=== PATIENT | male | born 1955 | race Caucasian/White ===

== ENCOUNTER 2023-08-07 10:14 | Outpatient (AMB) | payer MEDICARE, SELFPAY ==
--- NOTE | 2023-08-07 10:21 | MHC.OFFVIS ---
Intake Vital Signs 08/07/23 10:36 Height 5 ft 8 in Weight 145 lb BMI 22.0 Handedness Left Intake Visit Reasons: New Pt - left shoulder pain Intake Note: Joel is a 68 year old left hand dominant male who presents today as a new patient for a evaluation for his left shoulder pain and weakness. Patient states that he 1st injured his left shoulder several years ago. He was lifting a heavy object when he felt a ?pop? in his left shoulder. Since that time he has had weakness when lifting his left hand above shoulder height. He did aggravate his left shoulder pain and weakness several months ago when he fell directly onto his left shoulder. He has had cortisone injections in the past which gave him minimal relief. He has also done physical therapy for 12 weeks over the last 6 months which aggravated his pain. He has tried Tylenol and anti-inflammatory medicines which gave him minimal relief. Allergies No Known Allergies Allergy (Verified 08/07/23 10:36) [facility] Social History (Updated 08/07/23 @ 10:36 by Kizzy Lopez) Alcohol intake: current Patient Tobacco Use Status: Never used Tobacco Physical Exam Vital Signs: BMI result Body Mass Index 22.0 Const Other: Well-nourished well-developed very friendly male awake alert and oriented x3 in no acute distress Extrem Other: Bilateral upper extremity examination shows good capillary refill, no skin lesions noted, normal sensation light touch Left shoulder examination shows decreased range of motion with was right shoulder, 3/5 strength with supraspinatus testing, positive impingement signs, tenderness over his acromioclavicular joint, no instability Results Reviewed Results Reviewed: X-rays of the patient's left shoulder show severe acromioclavicular joint narrowing, a type 2 acromion, no acute bony abnormalities Assessment & Plan Assessment & Plan (1) Rotator cuff insufficiency of left shoulder: Code(s): M25.312 - Other instability, left shoulder Plan: Mr. Odonnell presents with progressively worsening left shoulder pain and weakness most likely due to a full-thickness rotator cuff tear. Thus, I will send the patient for an MRI of his left shoulder for further evaluation. I will see him back once the MRI is completed to discuss the findings and treatment options. Patient states that he prefers to have his MRI performed at [facility] in [place], [place] where he has had imaging studies in the past. He will continue with his range of motion exercises in the meantime to prevent stiffness. Feel free to call me at any time should questions regarding his orthopedic management arise. Thank you very much for asking me to see this very friendly gentleman. I spent 22 minutes in reviewing the patient's records and imaging studies, seeing the patient and documenting in the medical record. Coding Level of Care Code New Pt Level 2 (35499) Diagnoses Rotator cuff insufficiency of left shoulder M25.312
[2023-08-07 10:36] VITALS: BMI 22.0
== END 2023-08-07 11:03 | disposition home or self-care (01) ==
PROVIDERS: Visit Provider Orthopaedic Surgery
DX: M25.312 Other instability, left shoulder (principal)
CPT/HCPCS: 99202

== ENCOUNTER 2023-08-07 17:08 | Outpatient (REF) | payer MEDICARE, SELFPAY ==
--- NOTE | ~2023-08-07 | XR_ITS ---
EXAMINATION: XR SHOULDER, LEFT CLINICAL INFORMATION: Pain. COMPARISON: None available. TECHNIQUE: AP neutral and scapula Y views of the left shoulder are submitted. FINDINGS: Bony alignment and mineralization are normal. The glenohumeral joint is intact. There is mild osteoarthritic change of the glenohumeral joint. A small well-corticated accessory ossification center or chronic avulsion fragment is incidentally seen inferior to the glenoid. The acromioclavicular and coracoclavicular intervals are normal. There is narrowing of the rotator cuff interval. No soft tissue calcification or foreign body is seen. There is no left pneumothorax. XR/XR shoulder LT min 2V IMPRESSION: 1. There is mild osteoarthritic change of the left glenohumeral joint. 2. There is narrowing of the left rotator cuff interval, raising the possibility of rotator cuff pathology. No calcific tendinitis is noted. 3. No acute fracture or dislocation is seen.
== END 2023-08-07 17:09 | disposition home or self-care (01) ==
LOC: HO.HOSX 17:08
PROVIDERS: Visit Provider Orthopaedic Surgery
DX: M25.312 Other instability, left shoulder (principal); M25.512 Pain in left shoulder
CPT/HCPCS: 73030; 99202

== ENCOUNTER 2023-08-22 09:15 | Outpatient (AMB) | payer MEDICARE, SELFPAY ==
--- NOTE | 2023-08-22 09:20 | A.OFFVIS_ITS ---
Intake Intake Visit Reasons: OV-Left shoulder MRI review Intake Note: Pt presents to the office today for a follow up for his emiler MRI results. Pt states he is still having the same type of pain within the last few weeks as he was when he was here last. He does not take any medicines for his discomfort. He continues with his activity modifications. Allergies No Known Allergies Allergy (Verified 08/22/23 09:20) Medication List - Last Reconciled 08/22/23 by Cuco Contreras MD No Known Home Meds [facility] Surgical History (Updated 08/22/23 @ 09:22 by Sandra Lin MA) History of carpal tunnel surgery Social History (Updated 08/22/23 @ 09:21 by Sandra Lin MA) Household Members: Spouse Housing: House Alcohol intake: current Patient Tobacco Use Status: Never used Tobacco Current occupational status: employed Current occupation: Salesman Physical Exam Const Other: Well-nourished well-developed very friendly male awake alert and oriented x3 in no acute distress Extrem Other: Bilateral upper extremity examination shows good capillary refill, no skin lesions noted, normal sensation light touch Left shoulder examination shows full active range of motion when compared to his right shoulder, 3/5 strength with supraspinatus testing, no instability Results Reviewed Results Reviewed: MRI of the patient's left shoulder shows a chronic massive rotator cuff tear with tendon retraction to the edge of the glenoid, no acute bony abnormalities Assessment & Plan Assessment & Plan (1) Rotator cuff insufficiency of left shoulder: Code(s): M25.312 - Other instability, left shoulder Plan: Mr. Odonnell presents with left shoulder discomfort and weakness due to a chronic rotator cuff tear. I had a lengthy discussion with the patient regarding the treatment options. At this point the patient's tear is irreparable. We did discuss the risks and benefits of reverse total shoulder replacement surgery. The patient is not interested in surgery at this time. He states that his symptoms are tolerable to him. Gentle strengthening exercises as well as range of motion exercises were discussed with the patient. He will follow up with me on as-needed basis should his symptoms worsen in any way. Feel free to call me at any time should questions regarding his orthopedic management arise. I spent 22 minutes in reviewing the patient's records and imaging studies, seeing the patient and documenting in the medical record. Coding Level of Care Code Est Pt Level 2 (34996) Diagnoses Rotator cuff insufficiency of left shoulder M25.702
== END 2023-08-22 09:45 | disposition home or self-care (01) ==
PROVIDERS: PCP Internal Medicine; Visit Provider Orthopaedic Surgery
DX: M25.312 Other instability, left shoulder (principal)
CPT/HCPCS: 99212

== ENCOUNTER → 2023-08-22 09:15 | Outpatient (BNVA) | payer MEDICARE, SELFPAY | PROVIDERS: PCP Internal Medicine; Visit Provider Orthopaedic Surgery | DX: M25.312 Other instability, left shoulder (principal) | CPT/HCPCS: 99212 ==

== ENCOUNTER 2024-06-01 07:40 | Outpatient (REF) | payer MEDICARE, SELFPAY ==
--- NOTE | ~2024-06-01 | XR_ITS ---
EXAMINATION: XR KNEE, BILATERAL CLINICAL INFORMATION: Bilateral knee pain COMPARISON: None. TECHNIQUE: 3 views of each knee FINDINGS: Small marginal osteophytes of all 3 compartments of each knee. Faint meniscal chondrocalcinosis. No joint effusions. No fracture. XR/XR knee LT 3V IMPRESSION: Mild tricompartmental osteoarthritis of both knees with meniscal chondrocalcinosis.
--- NOTE | ~2024-06-01 | XR_ITS ---
EXAMINATION: XR KNEE, BILATERAL CLINICAL INFORMATION: Bilateral knee pain COMPARISON: None. TECHNIQUE: 3 views of each knee FINDINGS: Small marginal osteophytes of all 3 compartments of each knee. Faint meniscal chondrocalcinosis. No joint effusions. No fracture. XR/XR knee RT 3V IMPRESSION: Mild tricompartmental osteoarthritis of both knees with meniscal chondrocalcinosis.
== END 2024-06-01 07:41 | disposition home or self-care (01) ==
LOC: HO.HOSX 07:40
PROVIDERS: Visit Provider Orthopaedic Surgery
DX: M25.562 Pain in left knee (principal); M25.561 Pain in right knee
CPT/HCPCS: 73562; 99212

== ENCOUNTER 2024-06-01 09:44 | Outpatient (AMB) | payer MEDICARE, SELFPAY ==
--- NOTE | 2024-06-01 09:57 | A.OFFVIS_ITS ---
Vital Signs 06/01/24 09:58 Height 5 ft 8 in Weight 150 lb BMI 22.8 Intake Visit Reasons: New prob- B/L knee consult RT worse Intake Note: Joel is a 69 yr old male who presents today for bilateral knee pains and giving way, right greater than left. The patient's states that he injured his right knee approximately 6 months ago while doing yd work. Since that time his s ymptoms have gotten worse. Most of the pain is along the medial aspect of his knee. States that his right knee will give out several times per day. He has failed the last 6 weeks of conservative treatment. Had injections in the past which gave him minimal relief. He has also done physical therapy exercises which aggravated his pain. Allergies No Known Allergies Allergy (Verified 06/01/24 09:58) Medication List - Last Reconciled 06/01/24 by Cuco Contreras MD carisoprodol 350 mg PO QID PRN clonazepam 0.5 mg PO DAILY PRN fluticasone propionate 50 mcg/actuation sprays intranasal ibuprofen 400 mg PO Q8H [facility] Surgical History (Updated 08/22/23 @ 09:22 by Sandra Lin CMA) History of carpal tunnel surgery Social History (Updated 08/22/23 @ 09:21 by Sandra Lin CMA) Household Members: Spouse Housing: House Alcohol intake: current Patient Tobacco Use Status: Never used Tobacco Current occupational status: employed Current occupation: Salesman Physical Exam Vital Signs: BMI result Body Mass Index 22.8 Const Other: Well-nourished well-developed very friendly female awake alert and oriented x3 in no acute distress Extrem Other: Bilateral lower extremity examination shows good capillary refill, no skin lesions noted, normal sensation light touch Bilateral knee examination shows minimal effusions, minimal crepitus with range of motion, tenderness along his medial joint lines, positive Ady's test, no instability Assessment & Plan Assessment & Plan (1) Right knee pain: Code(s): M25.561 - Pain in right knee Category: Medical (2) Left knee pain: Code(s): M25.562 - Pain in left knee Category: Medical Plan Mr. Odonnell presents with bilateral knee pains and mechanical symptoms, right greater than left, most likely due to tearing of his medial menisci. Thus, I will send the patient for an MRI of his right knee for further evaluation. I will see him back once the MRI is completed to discuss the findings and treatment options. Feel free to call me at any time should questions regarding his orthopedic management arise. I spent 20 minutes in reviewing the patient's records and imaging studies, seeing the patient and documenting in the medical record. Orders: Orders MR knee RT wo con Today S83.241A - Other tear of medial meniscus, current injury, right knee, initial encounter XR knee LT 3V Today M25.562 - Pain in left knee XR knee RT 3V Today M25.561 - Pain in right knee Coding Level of Care Code Est Pt Level 3 (68017) Diagnoses Right knee pain M25.561 Left knee pain M25.562
[2024-06-01 09:58] VITALS: BMI 22.8
== END 2024-06-01 10:11 | disposition home or self-care (01) ==
PROVIDERS: PCP Internal Medicine; Visit Provider Orthopaedic Surgery
DX: M25.561 Pain in right knee (principal); M25.562 Pain in left knee
CPT/HCPCS: 99213

== ENCOUNTER 2024-07-08 14:02 | Outpatient (AMB) | payer MEDICARE, SELFPAY ==
--- NOTE | 2024-07-08 14:06 | A.OFFVIS_ITS ---
Intake Visit Reasons: OV- MRI Review(MRI done on 06/08) Intake Note: Joel is a 69 yr old male who presents today for bilateral knee pains and giving way, right greater than left. The patient's states that he injured his right knee approximately 6 months ago while doing yard work. The patient states that over the last few weeks his symptoms have improved somewhat. He reports intermittent giving way in his right knee. He denies constant pain. He has tried Tylenol and ibuprofen which gave him mild relief. Allergies No Known Allergies Allergy (Verified 07/08/24 14:06) Medication List - Last Reconciled 07/08/24 by Cuco Contreras MD carisoprodol 350 mg PO QID PRN clonazepam 0.5 mg PO DAILY PRN fluticasone propionate 50 mcg/actuation sprays intranasal ibuprofen 400 mg PO Q8H [facility] Surgical History History of carpal tunnel surgery Social History Household Members: Spouse Housing: House Alcohol intake: current Patient Tobacco Use Status: Never used Tobacco Current occupational status: employed Current occupation: Salesman Physical Exam Const Other: Well-nourished well-developed very friendly male awake alert and oriented x3 in no acute distress Extrem Other: Bilateral lower extremity examination shows good capillary refill, no skin lesions noted, normal sensation light touch Right knee examination shows a minimal effusion, minimal crepitus with range of motion, tenderness along his medial joint line, positive Ady's test, no instability Results Reviewed Results Reviewed: MRI of the patient's right knee shows mild degenerative changes most significant in the medial compartment as well as a tear of the medial meniscus Assessment & Plan Assessment & Plan (1) Right knee pain: Code(s): M25.561 - Pain in right knee Category: Medical Plan Mr. Odonnell presents with intermittent right knee discomfort and mechanical symptoms due to early degenerative joint disease as well as a tear of his medial meniscus. I had a lengthy discussion with the patient regarding the treatment options. At this point the patient's symptoms are tolerable to him. He will continue with his activity modifications. Will follow up with me on an as- needed basis should his symptoms worsen in any way. At that time we will further discuss the risks and benefits of right knee arthroscopic surgery. Feel free to call me at any time should questions regarding his orthopedic management arise. I spent 20 minutes in reviewing the patient's records and imaging studies, seeing the patient and documenting in the medical record. Coding Level of Care Code Est Pt Level 3 (08542) Diagnoses Right knee pain M25.561
== END 2024-07-08 14:26 | disposition home or self-care (01) ==
PROVIDERS: PCP Internal Medicine; Visit Provider Orthopaedic Surgery
DX: M25.561 Pain in right knee (principal)
CPT/HCPCS: 99213

== ENCOUNTER → 2024-07-08 14:02 | Outpatient (BNVA) | payer MEDICARE, SELFPAY | PROVIDERS: PCP Internal Medicine; Visit Provider Orthopaedic Surgery | DX: M17.11 Unilateral primary osteoarthritis, right knee (principal); S83.241A Other tear of medial meniscus, current injury, right knee, initial encounter | CPT/HCPCS: 99212 ==